=== PATIENT | female | born 1965 | race Caucasian/White ===

== ENCOUNTER 2019-01-21 12:35 | Inpatient (IN) | payer BC ==
[2019-01-21] MEDS ORDERED: LORazepam TAB(*) 1 MG PO ONE ×2 (16:11→23:16)
--- NOTE | 2019-01-21 17:16 | ED ---
Psychiatric Complaint - HPI Summary HPI Summary: This patient is a 53-year-old female presenting to the ED with symptoms of anxiety which has not been controlled with her medications. Patient states she had an 8 day stay at [facility] and was given haldol. Patient states she subsequently developed palpitations and was taken off Haldol and instead given Ativan. When she followed up as an outpatient, they took her off Ativan and prescribe her venlafaxine. She states she had no relief with this and again after up her dose twice, she again developed feelings of palpitations with no relief of her anxiety. She went back to her PCP who then again placed her back on her Ativan. She is currently on 0.5 mg 4 times daily as needed for anxiety and she states she is needed all 4 doses daily. She denies any SI/HI. She states she came today to see a counselor and get "admitted." She states she would at least like one night to "clear her thoughts." Her is requesting this as well. - History Of Current Complaint Chief Complaint: EDPsychosocial Time Seen by Provider: 01/21/19 13:45 Hx Obtained From: Patient ?: No Onset/Duration: Sudden Onset Timing: Constant Severity Initially: Moderate Severity Currently: Moderate Character: Anxious Aggravating Factor(s): Nothing Alleviating Factor(s): Nothing Associated Signs And Symptoms: Positive: Negative - Risk Factor(s) Completed Suicide Risk Factors: Negative - Allergies/Home Medications Allergies/Adverse Reactions: Allergies Allergy/AdvReac Type Severity Reaction Status Date / Time Penicillins Allergy Rash Verified 01/21/19 13:07 Home Medications: Home Medications Albuterol HFA INHALER* [Ventolin HFA Inhaler*] 2 puff INH Q4H PRN 01/21/19 [ History Confirmed 01/21/19] Budesonide/Formote 80/4.5(NF) [Symbicort 80/4.5 (NF)] 2 puff INH BID 01/21/19 [ History Confirmed 01/21/19] LORazepam TAB(*) [Ativan 0.5 MG TAB (*)] 0.5 mg PO Q6H PRN 01/21/19 [History Confirmed 01/21/19] Thyroid,Pork [[place] Thyroid] 30 mg PO DAILY 01/21/19 [History Confirmed ] PMH/Surg Hx/FS Hx/Imm Hx Previously Healthy: Yes - Immunization History Hx Pertussis Vaccination: No Immunizations Up to Date: Yes Infectious Disease History: No Infectious Disease History: Denies: Traveled Outside the [place] in Last 30 Days - Social History Occupation: Unemployed Lives: With Family Alcohol Use: Daily Alcohol Amount: 4 beers Hx Substance Use: Yes Substance Use Type: Reports: Marijuana Smoking Status (MU): Never Smoked Tobacco Review of Systems Negative: Fever, Chills, Fatigue, Skin Diaphoresis Negative: Palpitations, Chest Pain Negative: Shortness Of Breath, Cough Genitourinary: Negative Positive: no symptoms reported, see HPI Negative: Arthralgia, Myalgia Skin: Negative Negative: Headache, Weakness, Paresthesia, Numbness Positive: Anxious All Other Systems Reviewed And Are Negative: Yes Physical Exam Triage Information Reviewed: Yes Vital Signs On Initial Exam: Initial Vitals Temp Pulse Resp BP Pulse Ox 100.3 F 86 16 122/81 97 01/21/19 13:01 01/21/19 13:01 01/21/19 13:01 01/21/19 13:01 01/21/19 13:01 Vital Signs Reviewed: Yes Appearance: Positive: Well-Appearing, Well-Nourished Skin: Positive: Warm, Skin Color Reflects Adequate Perfusion Head/Face: Positive: Normal Head/Face Inspection Eyes: Positive: EOMI, GEORGES, Conjunctiva Clear Neck: Positive: Supple, Nontender, No Lymphadenopathy Respiratory/Lung Sounds: Positive: Clear to Auscultation, Breath Sounds Present Cardiovascular: Positive: RRR, Pulses are Symmetrical in both Upper and Lower Extremities Musculoskeletal: Positive: Normal, Strength/ROM Intact Neurological: Positive: Speech Normal Psychiatric: Positive: Anxious AVPU Assessment: Alert Procedures - Sedation Patient Received Moderate/Deep Sedation with Procedure: No Diagnostics - Vital Signs Vital Signs Temp Pulse Resp BP Pulse Ox 01/21/19 16:16 16 01/21/19 15:59 94 115/77 95 01/21/19 13:01 100.3 F 86 16 122/81 97 - Laboratory Lab Statement: Any lab studies that have been ordered have been reviewed, and results considered in the medical decision making process. Course/Dx - Course Course Of Treatment: During his course of treatment, the patient is evaluated for symptoms of anxiety. Patient has anxiety at baseline and is currently taking medication for this. She is here today requesting an admission or at least to stay overnight to "clear her thoughts." She denies any SI or HI. I discussed with the patient I will request a mental health evaluation for her, however it will be up to the mental health electrical intern and psychiatrist if she will be admitted or any mental changes will be made. She is okay with this plan. She is signed out to JERONIMO Jordan pending MHE at 5:30pm. - Differential Dx/Clinical Impression Differential Diagnosis/HQI/PQRI: Positive: Anxiety, Bipolar Disorder Provider Diagnosis: Anxiety Discharge ED - Sign-Out/Discharge Documenting (check all that apply): Sign-Out Patient Signing out patient TO: Ad Lombardo - Discharge Plan Condition: Fair Referrals: Eulalio DECKER,Portia Colby [Primary Care Provider] - - Billing Disposition and Condition Condition: FAIR
[2019-01-21 21:02] LABS: Hematocrit 39 % (35-47); Hemoglobin 13.6 g/dL (12.0-16.0); Mean Corpuscular HGB Conc 35 g/dL (31-36); Mean Corpuscular Hemoglobin 33 pg (27-31); Mean Corpuscular Volume 94 fL (80-97); Mean Platelet Volume 6.2 fL (7.4-10.4); Platelet Count 452 10^3/uL (150-450); Red Blood Count 4.19 10^6 /uL (3.70-4.87); Red Cell Distribution Width 13 % (10-15); White Blood Count 7.2 10^3/uL (3.5-10.8)
[2019-01-21 21:19] LABS: ALT 12 U/L (7-52); AST 15 U/L (13-39); Albumin 4.3 g/dL (3.2-5.2); Albumin/Globulin Ratio 1.9 (1-3); Alkaline Phosphatase 66 U/L (34-104); Anion Gap 7 mmol/L (2-11); BUN/Creatinine Ratio 17.1 (8-20); Blood Urea Nitrogen 14 mg/dL (6-24); CO2 Carbon Dioxide 30 mmol/L (22-32); Calcium 9.8 mg/dL (8.6-10.3); Chloride 104 mmol/L (101-111); EGFR African American 87.6 (>60); EGFR Non-African American 72.4 (>60); Globulin 2.3 g/dL (2-4); Glucose 101 mg/dL (70-100); Potassium 4.1 mmol/L (3.5-5.0); Sodium 141 mmol/L (135-145); Total Protein 6.6 g/dL (6.4-8.9)
[2019-01-21 21:25] LABS: ABS Eosinophils 0.2 10^3/ul (0-0.6); ABS Lymphocytes 3.6 10^3/ul (1.0-4.8); ABS Monocytes 0.6 10^3/ul (0-0.8); ABS Neutrophils 2.7 10^3/ul (1.5-7.7); Eosinophil % 3.1 %; Lymphocyte % 50.7 %; Nucleated Red Blood Cells % 0.1
[2019-01-21 21:31] LABS: Urine Appearance Clear; Urine Bilirubin Negative (Negative); Urine Blood Negative (Negative); Urine Color Straw; Urine Glucose Negative (Negative); Urine Ketones Negative (Negative); Urine Nitrite Negative (Negative); Urine Protein Negative (Negative); Urine Specific Gravity 1.003 (1.010-1.030); Urine Urobilinogen Negative (Negative)
[2019-01-21 21:33] LABS: Acetaminophen < 15 mcg/mL; Alcohol < 10 mg/dL (<10); Salicylate < 2.50 mg/dL (<30)
[2019-01-21 21:47] LABS: TSH (Thyroid Stimulating Horm) 1.21 mcIU/mL (0.34-5.60)
[2019-01-21 21:52] LABS: Urine Benzodiazepine Screen None Detected (None Detect); Urine Opiates Screen None Detected (None Detect)
[2019-01-22] MEDS ORDERED: OLANzapine TAB* 5 MG ONE (02:48)
--- NOTE | 2019-01-22 02:49 | PN ---
Progress Note - Progress Note Date of Service: 01/22/19 Note: Patient signed out to me by Marva DECKER pending mental health evaluation. Vital signs within normal limits. Labs unremarkable. Per Dr. Jimenez patient admitted to [facility] [place] with diagnosis of unspecified psychosis.
[2019-01-22] MEDS ORDERED: Nicotine* 2MG (FRUIT FLAVOR) GUM PO PRN (04:52)
[2019-01-22] MEDS ORDERED: Al Hydrox/Mg Hydrox/Simet LIQ* 30 ML UDC PO PRN (04:52)
[2019-01-22] MEDS ORDERED: Acetaminophen TAB* 325 MG PO PRN (04:52)
[2019-01-22] MEDS ORDERED: LORazepam TAB(*) 1 MG PO PRN (04:54)
[2019-01-22] MEDS ORDERED: LORazepam PO 0-6 for WAM protocol PO SCH (05:00)
[2019-01-22] MEDS ORDERED: Nicotine PATCH 21 MG/24 HR* PATCH TRANSDERM SCH (09:00)
[2019-01-22] MEDS: Vitamin THERAPEUTIC TAB PO SCH (09:04)
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
[2019-01-22] MEDS: Thiamine TAB* 100 MG TAB PO SCH (11:16)
[2019-01-22] MEDS: Escitalopram * 10 MG TAB PO SCH (11:16)
[2019-01-22] MEDS ORDERED: Albuterol HFA INHALER* 8 gm MDI INH PRN (11:43)
[2019-01-22] MEDS ORDERED: ARIPiprazole TAB* 5 MG PO SCH (12:00)
[2019-01-22] MEDS: Thyroid TAB* 30 MG PO SCH ×2 (12:25→13:48)
[2019-01-22] MEDS: Mometasone/Formoter 100/5 MDI INH SCH ×2 (12:26→20:37)
[2019-01-22] MEDS ORDERED: Gadoteridol* (CONTRAST) 279.3 MG/ML 10 ML IV ONE (14:45)
[2019-01-22] MEDS: hydrOXYzine HCL TAB* 25 MG PO PRN (17:47)
[2019-01-22] MEDS: QUEtiapine TAB* 300 MG PO SCH (20:37)
[2019-01-22] MEDS ORDERED: Nicotine Patch Removal NOTE PATCH OFF SCH (21:00)
[2019-01-22] MEDS ORDERED: OLANzapine TAB* 5 MG PO SCH (21:00)
[2019-01-22] MEDS ORDERED: QUEtiapine TAB* 100 MG PO SCH ×2 (21:00)
[2019-01-23 07:04] LABS: HDL Cholesterol 67.3 mg/dL
[2019-01-23] MEDS: Thyroid TAB* 30 MG PO SCH (07:19)
[2019-01-23] MEDS: Mometasone/Formoter 100/5 MDI INH SCH ×2 (09:09→20:23)
[2019-01-23] MEDS: Thiamine TAB* 100 MG TAB PO SCH (09:09)
[2019-01-23] MEDS: Escitalopram * 10 MG TAB PO SCH (09:10)
[2019-01-23] MEDS: Vitamin THERAPEUTIC TAB PO SCH (09:11)
--- NOTE | 2019-01-23 09:52 | PN ---
Subjective - Subjective Date of Service: 01/23/19 Service Type: 54914 Hosp care 35 min high complexity Subjective: Nursing Report: Patient was visible on unit, no behavioral incidents. Slept overnight 6 hours. Attending group activities. CC: "People are blaming me for things Patient was seen and evaluated today in the common room. The patient reported that she feels that people are blaming her for getting help. She reported having better sleep overnight. The patient reports attending and participating in day groups. Per nursing no behavioral issues or overnight events reported. Patient reported that she is tolerating medications without side effects. Patient expressed that she would like to move on with the things in the past such as taking apart things in her home and thinking that helicopters are stealing her information. Objective - General Observations Appearance: Disheveled Appears Stated Age: Yes Stature: WNL Posture: Slumped Eye Contact: Intermittent Behavior/Activity: Slowed - Interaction Observations Attitude Towards Examiner: Cooperative Stated Mood: Dysphoric Affect: Restricted Speech Pattern/Tone: Perseverating Thought Process: Loose Associations Perception: Depersonalization Thought Content: Self-Deprecatory Thought Process: Lethality: Paranoid Ideation Hallucination Type: Denies Delusion Type: Control - Cognitive Function Orientation: A&O x 4 Level of Consciousness: Awake - Medication Compliance Cooperative with Inpatient Medication Regimen: Yes - Group Participation Participates in Group Activities: Yes Assessment - Assessment Merits Inpatient Hospitalization: For Immediate Safety Clinical Impression: 53 year old female with history of depression came to the hospital with her with multiple paranoid delusions and was admitted to the BSU at [facility]. Plan - Plan Treatment Plan: Name: KELSIE IRWIN Birthdate: 1965 [id number] Plan #Q30 minute observation with staff pass # The patient requires psychiatric inpatient admission at this time to assure safety, receive treatment and work toward stabilization. # Hospitalist contacted and reviewed EKG results and determined them to be normal # Obtained collateral information from Víctor # [phone]. # contacted and he removed patients access to firearms # Collaboration with Freelance Designer Maryuri Rodgers # Continue thiamine 200mg daily # Arrange family meeting with # Continue lexapro 10mg daily for depression # Continue seroquel 300mg qhs for psychosis # Late onset psychiatric manifestations will order RPR, Lyme WB, ISAC. # MRI brain results mild chronic small vessel disease is likely, atrophy of left parotid gland and no acute intracranial abnormality # Vitamin B12 level normal, RPR negative, Lyme negative # ISAC pending # MOCA score 27 deficiency in memory delayed recall #Goals before discharge include: Reduce paranoid delusions Tentative Discharge: Pending psychiatric stabilization Sodium 141 mmol/L (135-145) 01/21/19 20:55 Potassium 4.1 mmol/L (3.5-5.0) 01/21/19 20:55 BUN 14 mg/dL (6-24) 01/21/19 20:55 Creatinine 0.82 mg/dL (0.51-0.95) 01/21/19 20:55 Calcium 9.8 mg/dL (8.6-10.3) 01/21/19 20:55 AST 15 U/L (13-39) 01/21/19 20:55 ALT 12 U/L (7-52) 01/21/19 20:55 Triglycerides 91 mg/dL 01/23/19 06:36 Cholesterol 182 mg/dL 01/23/19 06:36 LDL Cholesterol 97 mg/dL 01/23/19 06:36 Continued Medication Management: Continue Outpt Medication Medications: Current Medications Acetaminophen (Tylenol Tab*) 650 mg PO Q4H PRN PRN Reason: PAIN or TEMP > 101 F Al Hydrox/Mg Hydrox/Simethicone (Maalox Plus*) 30 ml PO Q4H PRN PRN Reason: INDIGESTION Albuterol (Ventolin Hfa Inhaler*) 2 puff INH Q4H PRN PRN Reason: SOB/WHEEZING Escitalopram Oxalate (Lexapro *) 10 mg PO DAILY [facility] Last Admin: 01/23/19 09:10 Dose: 10 mg Hydroxyzine HCl (Atarax Tab*) 25 mg PO Q6H PRN PRN Reason: ANXIETY Last Admin: 01/22/19 17:47 Dose: 25 mg Mometasone Furoate/Formoterol Fumar (Dulera 100/5 Mdi*) 2 puff INH BID [facility] Last Admin: 01/23/19 09:09 Dose: 2 puff Multivitamins (Theragran Tab*) 1 tab PO DAILY [facility] Last Admin: 01/23/19 09:11 Dose: 1 tab Quetiapine Fumarate (Seroquel Tab*) 300 mg PO BEDTIME [facility] Last Admin: 01/22/19 20:37 Dose: 300 mg Thiamine HCl (Vitamin B-1 Tab*) 200 mg PO DAILY [facility] Last Admin: 01/23/19 09:09 Dose: 200 mg Thyroid (Thyroid Tab*) 30 mg PO DAILY@0730 [facility] Last Admin: 01/23/19 07:19 Dose: 30 mg - Discharge Plan Discharge Plan: Inpatient Hospitalization
[2019-01-23] MEDS: hydrOXYzine HCL TAB* 25 MG PO PRN ×2 (12:34→17:25)
[2019-01-23] MEDS ORDERED: QUEtiapine XR TAB* 200 MG PO SCH (21:00)
[2019-01-23] MEDS: QUEtiapine TAB* 300 MG PO SCH (21:07)
[2019-01-24] MEDS: hydrOXYzine HCL TAB* 25 MG PO PRN ×3 (04:51→16:55)
[2019-01-24] MEDS: Thiamine TAB* 100 MG TAB PO SCH (08:55)
[2019-01-24] MEDS: Vitamin THERAPEUTIC TAB PO SCH (08:55)
[2019-01-24] MEDS: Escitalopram * 20 MG TABLET PO SCH (08:55)
[2019-01-24] MEDS: Mometasone/Formoter 100/5 MDI INH SCH ×2 (08:56→20:07)
--- NOTE | 2019-01-24 10:22 | PN ---
Subjective - Subjective Date of Service: 01/24/19 Service Type: 08211 Hosp care 35 min high complexity Subjective: Nursing Report: Patient was visible on unit, no behavioral incidents. Attending group activities. CC: "I dont know why people are bringing up things from the past Patient was seen and evaluated today in the common room. The patient reported that she did not get good sleep overnight and that she spoke with her today. She wishes that people would move on from the things that happened to her in the past. She reported having less racing thoughts and feels more "stable ". She reported adequate appetite. Patient reported that she is tolerating medications without side effects. Objective - General Observations Appearance: Well Groomed Appears Stated Age: Yes Stature: WNL Posture: WNL Eye Contact: Average Behavior/Activity: WNL - Interaction Observations Attitude Towards Examiner: Cooperative Stated Mood: Dysphoric Affect: Restricted Speech Pattern/Tone: Normal Volume Thought Process: Loose Associations Perception: WNL Thought Content: Paranoid Thought Process: Lethality: Paranoid Ideation Hallucination Type: Denies Delusion Type: Persecution - Cognitive Function Orientation: A&O x 4 Level of Consciousness: Awake Cognition: WNL - Medication Compliance Cooperative with Inpatient Medication Regimen: Yes - Group Participation Participates in Group Activities: Yes Assessment - Assessment Merits Inpatient Hospitalization: For Immediate Safety Clinical Impression: 53 year old female with history of depression came to the hospital with her with multiple paranoid delusions and was admitted to the BSU at [facility]. Plan - Plan Treatment Plan: Name: KELSIE IRWIN Birthdate: 1965 [id number] Plan #Q30 minute observation with staff pass Patient responding well to treatment with good response. # The patient requires psychiatric inpatient admission at this time to assure safety, receive treatment and work toward stabilization. # Hospitalist contacted and reviewed EKG results and determined them to be normal # Obtained collateral information from V[facility]ctor # [phone]. # contacted and he removed patients access to firearms # Collaboration with [employer] Analyst Maryuri Rodgers # Discontinue thiamine # Family meeting Sunday at 11am # Increase lexapro 20mg daily for depression # Increase seroquel 600mg qhs for psychosis advised to slowly stand up from rising position # MRI brain results mild chronic small vessel disease is likely, atrophy of left parotid gland and no acute intracranial abnormality # Vitamin B12 level normal, RPR negative, Lyme negative # ISAC pending # MOCA score 27 deficiency in memory delayed recall #Goals before discharge include: Reduce/ eliminate depression anxiety and paranoia Tentative Discharge: Sunday01/21/19 01/21/19 01/21/19 20:55 20:55 20:55 WBC 7.2 RBC 4.19 Hgb 13.6 Hct 39 MCV 94 MCH 33 H MCHC 35 RDW 13 Plt Count 452 H MPV 6.2 L Neut % (Auto) 37.0 Lymph % (Auto) 50.7 Island % (Auto) 8.9 Eos % (Auto) 3.1 Baso % (Auto) 0.3 Absolute Neuts (auto) 2.7 Absolute Lymphs (auto) 3.6 Absolute Monos (auto) 0.6 Absolute Eos (auto) 0.2 Absolute Basos (auto) 0.0 Absolute Nucleated RBC 0.0 Nucleated RBC % 0.1 Sodium 141 Potassium 4.1 Chloride 104 Carbon Dioxide 30 Anion Gap 7 BUN 14 Creatinine 0.82 Est GFR ( Amer) 87.6 Est GFR (Non-Af Amer) 72.4 BUN/Creatinine Ratio 17.1 Glucose 101 H Hemoglobin A1c Calcium 9.8 Total Bilirubin 0.30 AST 15 ALT 12 Alkaline Phosphatase 66 Total Protein 6.6 Albumin 4.3 Globulin 2.3 Albumin/Globulin Ratio 1.9 Triglycerides Cholesterol LDL Cholesterol HDL Cholesterol Vitamin B12 822 TSH 1.21 Urine Color Urine Appearance Urine pH Ur Specific [place] Urine Protein Urine Ketones Urine Blood Urine Nitrate Urine Bilirubin Urine Urobilinogen Ur Leukocyte Esterase Urine Glucose Salicylates < 2.50 Urine Opiates Screen Acetaminophen < 15 Ur Barbiturates Screen Ur Phencyclidine Scrn Ur Amphetamines Screen U Benzodiazepines Scrn Urine Cocaine Screen U Cannabinoids Screen Serum Alcohol < 10 Syphilis IgG Antibody Negative Lyme Total Antibody Negative 01/21/19 01/21/19 01/23/19 21:22 21:22 06:36 WBC RBC Hgb Hct MCV MCH MCHC RDW Plt Count MPV Neut % (Auto) Lymph % (Auto) [place] % (Auto) Eos % (Auto) Baso % (Auto) Absolute Neuts (auto) Absolute Lymphs (auto) Absolute Monos (auto) Absolute Eos (auto) Absolute Basos (auto) Absolute Nucleated RBC Nucleated RBC % Sodium Potassium Chloride Carbon Dioxide Anion Gap BUN Creatinine Est GFR ( Amer) Est GFR (Non-Af Amer) BUN/Creatinine Ratio Glucose Hemoglobin A1c Calcium Total Bilirubin AST ALT Alkaline Phosphatase Total Protein Albumin Globulin Albumin/Globulin Ratio Triglycerides 91 Cholesterol 182 LDL Cholesterol 97 HDL Cholesterol 67.3 Vitamin B12 TSH Urine Color Straw Urine Appearance Clear Urine pH 6.0 Ur Specific [place] 1.003 L Urine Protein Negative Urine Ketones Negative Urine Blood Negative Urine Nitrate Negative Urine Bilirubin Negative Urine Urobilinogen Negative Ur Leukocyte Esterase Negative Urine Glucose Negative Salicylates Urine Opiates Screen None detected Acetaminophen Ur Barbiturates Screen None detected Ur Phencyclidine Scrn None detected Ur Amphetamines Screen None detected U Benzodiazepines Scrn None detected Urine Cocaine Screen None detected U Cannabinoids Screen Presumptive positive A Serum Alcohol Syphilis IgG Antibody Lyme Total Antibody 01/23/19 06:36 WBC RBC Hgb Hct MCV MCH MCHC RDW Plt Count MPV Neut % (Auto) Lymph % (Auto) Island % (Auto) Eos % (Auto) Baso % (Auto) Absolute Neuts (auto) Absolute Lymphs (auto) Absolute Monos (auto) Absolute Eos (auto) Absolute Basos (auto) Absolute Nucleated RBC Nucleated RBC % Sodium Potassium Chloride Carbon Dioxide Anion Gap BUN Creatinine Est GFR ( Amer) Est GFR (Non-Af Amer) BUN/Creatinine Ratio Glucose Hemoglobin A1c 5.2 Calcium Total Bilirubin AST ALT Alkaline Phosphatase Total Protein Albumin Globulin Albumin/Globulin Ratio Triglycerides Cholesterol LDL Cholesterol HDL Cholesterol Vitamin B12 TSH Urine Color Urine Appearance Urine pH Ur Specific [place] Urine Protein Urine Ketones Urine Blood Urine Nitrate Urine Bilirubin Urine Urobilinogen Ur Leukocyte Esterase Urine Glucose Salicylates Urine Opiates Screen Acetaminophen Ur Barbiturates Screen Ur Phencyclidine Scrn Ur Amphetamines Screen U Benzodiazepines Scrn Urine Cocaine Screen U Cannabinoids Screen Serum Alcohol Syphilis IgG Antibody Lyme Total Antibody Continued Medication Management: Continue Outpt Medication Medications: Current Medications Acetaminophen (Tylenol Tab*) 650 mg PO Q4H PRN PRN Reason: PAIN or TEMP > 101 F Al Hydrox/Mg Hydrox/Simethicone (Maalox Plus*) 30 ml PO Q4H PRN PRN Reason: INDIGESTION Albuterol (Ventolin Hfa Inhaler*) 2 puff INH Q4H PRN PRN Reason: SOB/WHEEZING Escitalopram Oxalate (Lexapro *) 20 mg PO DAILY [facility] Last Admin: 01/24/19 08:55 Dose: 20 mg Hydroxyzine HCl (Atarax Tab*) 25 mg PO Q6H PRN PRN Reason: ANXIETY Last Admin: 01/24/19 04:51 Dose: 25 mg Mometasone Furoate/Formoterol Fumar (Dulera 100/5 Mdi*) 2 puff INH BID [facility] Last Admin: 01/24/19 08:56 Dose: 2 puff Multivitamins (Theragran Tab*) 1 tab PO DAILY [facility] Last Admin: 01/24/19 08:55 Dose: 1 tab Quetiapine Fumarate (Seroquel Xr Tab*) 400 mg PO BEDTIME [facility] Last Admin: 01/23/19 21:07 Dose: Not Given Thiamine HCl (Vitamin B-1 Tab*) 200 mg PO DAILY [facility] Last Admin: 01/24/19 08:55 Dose: 200 mg Thyroid (Thyroid Tab*) 30 mg PO DAILY@0730 [facility] Last Admin: 01/23/19 07:19 Dose: 30 mg - Discharge Plan Discharge Plan: Inpatient Hospitalization
[2019-01-24] MEDS: Thyroid TAB* 30 MG PO SCH (11:00)
[2019-01-24] MEDS: QUEtiapine XR TAB* 200 MG PO SCH (20:06)
[2019-01-25] MEDS: Thyroid TAB* 30 MG PO SCH (06:50)
[2019-01-25] MEDS: Mometasone/Formoter 100/5 MDI INH SCH ×2 (07:49→19:51)
[2019-01-25] MEDS: Vitamin THERAPEUTIC TAB PO SCH (07:50)
[2019-01-25] MEDS: Escitalopram * 20 MG TABLET PO SCH (07:51)
[2019-01-25] MEDS: hydrOXYzine HCL TAB* 25 MG PO PRN ×2 (12:43→19:53)
[2019-01-25] MEDS: QUEtiapine XR TAB* 200 MG PO SCH (19:52)
[2019-01-26] MEDS: hydrOXYzine HCL TAB* 25 MG PO PRN ×3 (05:15→18:19)
[2019-01-26] MEDS: Escitalopram * 20 MG TABLET PO SCH (07:37)
[2019-01-26] MEDS: Vitamin THERAPEUTIC TAB PO SCH (07:37)
[2019-01-26] MEDS: Mometasone/Formoter 100/5 MDI INH SCH ×2 (07:38→20:23)
[2019-01-26] MEDS: Thyroid TAB* 30 MG PO SCH (10:51)
--- NOTE | 2019-01-26 18:20 | PN ---
Subjective - Subjective Date of Service: 01/26/19 Subjective: Kelsie presents as guarded, paranoid, pressured in speech but endorses improved mood and sleep. She denies SI/HI or A/VH or side effects from prescribed meds. Objective - General Observations Appearance: Unkempt Appears Stated Age: Yes Stature: Thin Posture: WNL Eye Contact: Average Behavior/Activity: WNL - Interaction Observations Attitude Towards Examiner: Defensive Stated Mood: Dysphoric Affect: Restricted Speech Pattern/Tone: Pressured Thought Process: Coherent, Goal Directed Perception: WNL Thought Content: Paranoid Hallucination Type: None Delusion Type: None - Cognitive Function Orientation: A&O x 4 Level of Consciousness: Alert Cognition: WNL Insight: Difficulty Acknowledging Presence of Psyciatric Problems Judgment Within Normal Limits: Yes - Medication Compliance Cooperative with Inpatient Medication Regimen: Yes - Group Participation Participates in Group Activities: Yes Assessment - Assessment Merits Inpatient Hospitalization: Consolidate Improvements, For Discharge Planning Clinical Impression: 53 year old female with history of depression came to the hospital with her with multiple paranoid delusions and was admitted to the BSU at [facility]. Stabilizing in this structured setting. Plan - Plan Treatment Plan: Name: KELSIE IRWIN Birthdate: 1965 [id number] Plan #Q30 minute observation with staff pass Patient responding well to treatment with good response. # The patient requires psychiatric inpatient admission at this time to assure safety, receive treatment and work toward stabilization. # Hospitalist contacted and reviewed EKG results and determined them to be normal # Obtained collateral information from V[facility]ctor # [phone]. # contacted and he removed patients access to firearms # Collaboration with Pilates Instructor Maryuri Rodgers # Discontinue thiamine # Family meeting Sunday at 11am # Increase lexapro 20mg daily for depression # Increase seroquel 600mg qhs for psychosis advised to slowly stand up from rising position # MRI brain results mild chronic small vessel disease is likely, atrophy of left parotid gland and no acute intracranial abnormality # Vitamin B12 level normal, RPR negative, Lyme negative # ISAC pending # MOCA score 27 deficiency in memory delayed recall #Goals before discharge include: Reduce/ eliminate depression anxiety and paranoia Tentative Discharge: Sunday01/21/19 01/21/19 01/21/19 20:55 20:55 20:55 WBC 7.2 RBC 4.19 Hgb 13.6 Hct 39 MCV 94 MCH 33 H MCHC 35 RDW 13 Plt Count 452 H MPV 6.2 L Neut % (Auto) 37.0 Lymph % (Auto) 50.7 [place] % (Auto) 8.9 Eos % (Auto) 3.1 Baso % (Auto) 0.3 Absolute Neuts (auto) 2.7 Absolute Lymphs (auto) 3.6 Absolute Monos (auto) 0.6 Absolute Eos (auto) 0.2 Absolute Basos (auto) 0.0 Absolute Nucleated RBC 0.0 Nucleated RBC % 0.1 Sodium 141 Potassium 4.1 Chloride 104 Carbon Dioxide 30 Anion Gap 7 BUN 14 Creatinine 0.82 Est GFR ( Amer) 87.6 Est GFR (Non-Af Amer) 72.4 BUN/Creatinine Ratio 17.1 Glucose 101 H Hemoglobin A1c Calcium 9.8 Total Bilirubin 0.30 AST 15 ALT 12 Alkaline Phosphatase 66 Total Protein 6.6 Albumin 4.3 Globulin 2.3 Albumin/Globulin Ratio 1.9 Triglycerides Cholesterol LDL Cholesterol HDL Cholesterol Vitamin B12 822 TSH 1.21 Urine Color Urine Appearance Urine pH Ur Specific [place] Urine Protein Urine Ketones Urine Blood Urine Nitrate Urine Bilirubin Urine Urobilinogen Ur Leukocyte Esterase Urine Glucose Salicylates < 2.50 Urine Opiates Screen Acetaminophen < 15 Ur Barbiturates Screen Ur Phencyclidine Scrn Ur Amphetamines Screen U Benzodiazepines Scrn Urine Cocaine Screen U Cannabinoids Screen Serum Alcohol < 10 Syphilis IgG Antibody Negative [place]yme Total Antibody Negative 01/21/19 01/21/19 01/23/19 21:22 21:22 06:36 WBC RBC Hgb Hct MCV MCH MCHC RDW Plt Count MPV Neut % (Auto) Lymph % (Auto) [place] % (Auto) Eos % (Auto) Baso % (Auto) Absolute Neuts (auto) Absolute Lymphs (auto) Absolute Monos (auto) Absolute Eos (auto) Absolute Basos (auto) Absolute Nucleated RBC Nucleated RBC % Sodium Potassium Chloride Carbon Dioxide Anion Gap BUN Creatinine Est GFR ( Amer) Est GFR (Non-Af Amer) BUN/Creatinine Ratio Glucose Hemoglobin A1c Calcium Total Bilirubin AST ALT Alkaline Phosphatase Total Protein Albumin Globulin Albumin/Globulin Ratio Triglycerides 91 Cholesterol 182 LDL Cholesterol 97 HDL Cholesterol 67.3 Vitamin B12 TSH Urine Color Straw Urine Appearance Clear Urine pH 6.0 Ur Specific [place] 1.003 L Urine Protein Negative Urine Ketones Negative Urine Blood Negative Urine Nitrate Negative Urine Bilirubin Negative Urine Urobilinogen Negative Ur Leukocyte Esterase Negative Urine Glucose Negative Salicylates Urine Opiates Screen None detected Acetaminophen Ur Barbiturates Screen None detected Ur Phencyclidine Scrn None detected Ur Amphetamines Screen None detected U Benzodiazepines Scrn None detected Urine Cocaine Screen None detected U Cannabinoids Screen Presumptive positive A Serum Alcohol Syphilis IgG Antibody [place] Total Antibody 01/23/19 06:36 WBC RBC Hgb Hct MCV MCH MCHC RDW Plt Count MPV Neut % (Auto) Lymph % (Auto) [place] % (Auto) Eos % (Auto) Baso % (Auto) Absolute Neuts (auto) Absolute Lymphs (auto) Absolute Monos (auto) Absolute Eos (auto) Absolute Basos (auto) Absolute Nucleated RBC Nucleated RBC % Sodium Potassium Chloride Carbon Dioxide Anion Gap BUN Creatinine Est GFR ( Amer) Est GFR (Non-Af Amer) BUN/Creatinine Ratio Glucose Hemoglobin A1c 5.2 Calcium Total Bilirubin AST ALT Alkaline Phosphatase Total Protein Albumin Globulin Albumin/Globulin Ratio Triglycerides Cholesterol LDL Cholesterol HDL Cholesterol Vitamin B12 TSH Urine Color Urine Appearance Urine pH Ur Specific [place] Urine Protein Urine Ketones Urine Blood Urine Nitrate Urine Bilirubin Urine Urobilinogen Ur Leukocyte Esterase Urine Glucose Salicylates Urine Opiates Screen Acetaminophen Ur Barbiturates Screen Ur Phencyclidine Scrn Ur Amphetamines Screen U Benzodiazepines Scrn Urine Cocaine Screen U Cannabinoids Screen Serum Alcohol Syphilis IgG Antibody [place] Total Antibody Medications: Current Medications Acetaminophen (Tylenol Tab*) 650 mg PO Q4H PRN PRN Reason: PAIN or TEMP > 101 F Al Hydrox/Mg Hydrox/Simethicone (Maalox Plus*) 30 ml PO Q4H PRN PRN Reason: INDIGESTION Albuterol (Ventolin Hfa Inhaler*) 2 puff INH Q4H PRN PRN Reason: SOB/WHEEZING Escitalopram Oxalate (Lexapro *) 20 mg PO DAILY [facility] Last Admin: 01/26/19 07:37 Dose: 20 mg Hydroxyzine HCl (Atarax Tab*) 25 mg PO Q6H PRN PRN Reason: ANXIETY Last Admin: 01/26/19 11:53 Dose: 25 mg Mometasone Furoate/Formoterol Fumar (Dulera 100/5 Mdi*) 2 puff INH BID [facility] Last Admin: 01/26/19 07:38 Dose: 2 puff Multivitamins (Theragran Tab*) 1 tab PO DAILY [facility] Last Admin: 01/26/19 07:37 Dose: 1 tab Quetiapine Fumarate (Seroquel Xr Tab*) 600 mg PO BEDTIME [facility] Last Admin: 01/25/19 19:52 Dose: 600 mg Thyroid (Thyroid Tab*) 30 mg PO DAILY@0730 [facility] Last Admin: 01/26/19 10:51 Dose: 30 mg - Discharge Plan Discharge Plan: Outpatient Follow Up Outpatient Program: [facility]
[2019-01-26] MEDS: QUEtiapine XR TAB* 200 MG PO SCH (20:23)
[2019-01-27] MEDS: hydrOXYzine HCL TAB* 25 MG PO PRN ×2 (00:03→06:16)
[2019-01-27] MEDS: Thyroid TAB* 30 MG PO SCH (07:00)
[2019-01-27 08:21] VITALS: BP 107/61
[2019-01-27] MEDS: Mometasone/Formoter 100/5 MDI INH SCH (08:56)
[2019-01-27] MEDS: Vitamin THERAPEUTIC TAB PO SCH (08:56)
[2019-01-27] MEDS: Escitalopram * 20 MG TABLET PO SCH (08:56)
--- NOTE | 2019-01-27 11:24 | DS ---
Subjective - Subjective Service Types: [address] [facility] Day Mgmt complex over 30 min Discharge Date: 01/27/19 Subjective: CC: " I am better" Patient looks forward to going home and seeing her sister. The patient was seen and evaluated before discharge today. The patient reported having adequate appetite and sleep. The patient reports attending and participating in day groups. Per nursing no behavioral issues or overnight events reported. Patient reported tolerating medications without side effects. Justification for admission: Immediate Safety. CC " I want to get better" The patient was brought to [facility] by her after she has been displaying unusual behavior such as calling the police stating people were in her house making her dogs sick, unplugging all devices in her home thinking they are bugged and collecting information about her. Dismantling objects and hub caps because she thinks that they are transmitting information. Patient believes that water is taped and that her home is a bugged and has become a central data base for information and that helicopters fly over and capture information that devices are collecting. She was recently hospitalized at [facility] and reported that she did not have any improvement. 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 According to her the patient became depressed after her sister in 2014 but since May 2018 she started to have increased paranoia. She took apart remote controls and thinking people were putting mirror coating on things to transmit information. She reported having many losses in her life that she identified as stressors such losing her aunt and uncle an her sister who from heart attack in 2014. Patient reported that in September a wood beam hit her in the head she denied losing consciousness or being evaluated by a medical professional. She asked about the possibility of lyme disease because she is frequently outside and has dogs. She has access to firearms at home and expressed that she has no plans to end her life or use them against any one else. She reported poor sleep 5 hrs per night on average and loss of appetite. The patient denied auditory and/ or visual hallucinations. MDD She reported feeling depressed and frequently having crying spells multiple times per day , and describes feelings of hopelessness. She reported 8-12 unintentional weight loss. She reported poor sleep and decreased concentration. Denied recurrent thoughts of . Denied thoughts that she would be better off . Anxiety Reported worrying frequently most often about her sister who moved to [place] and has lung cancer. She denied having panic attacks. Bipolar Denied symptoms of anish such as having many ideas at once. Denied increased talkativeness where no one can interrupt. Denied feeling irritable most of the time while having an persistent abundance of energy most of the day without the use of energy drinks, stimulants, or recreational drug use. Denied an increase in intensity in goal directed activities. Denied having the decreased need to sleep for days , having prolonged elevated mood , or feeling on top of the world. Denied impulsive risky sexual encounters. Denied spending money recklessly , going on spending sprees wiping out savings. Denied impulsively traveling out of town or country, having super pappas, and unrealistic wealth or fame. Psychosis Patient recently called the police stating people were in her house making her dogs sick, and that devices in her home are collecting information about her and sending it to helicopters. Phobias: Patient denied having excessive fear of a particular thing or situation. Eating disorders: Patient denied having excessive eating habits or feelings of guilt after eating. Denied repeated episodes of self induced vomiting after eating. PTSD Denied flashbacks, nightmares and avoidance of a prior traumatic event. PAST PSYCHIATRIC HISTORY: Prior Diagnosis : Depression History of past Psychiatric Hospitalizations: 1 prior psychiatric admission at [facility] for 8 days in September,. History of past suicide/homicide attempts : Denied past suicide attempts or self injurious behaviors ( confirmed by collateral) . No history of violence. Outpatient follow-up: [facility] mental health outpatient services Medications: Past trials of medications include Paxil that she took for 14 days in November,, Ativan, Effexor 75mg , and Haldol ( described developing a skin rash) Guardianship: None. FAMILY HISTORY: - Suicide: Denied family history of suicide. - Mental illness: Niece Dx with Depression - Substance abuse: Denied substance abuse among family members. SUBSTANCE ABUSE HISTORY: - EtOH: Consumes 4 beers daily since 2015. No associated legal issues, blackouts , seizures, DTs or hospitalizations due to alcohol. - Tobacco: Denied - Cannabis: Uses daily one joint since age 11. - Heroin: Denied - Cocaine: Denied - Substance abuse treatment: Denied past substance abuse treatment SOCIAL HISTORY: - Denied a history of childhood physical and or sexual abuse Born in [place], [place], and raised by both parents. 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 - Relationship: and has no children. - Legal history: Denied - service history: Denied PAST MEDICAL HISTORY: Asthma, Hypothyroidism - Allergies: Haldol (Rash), Penicillins, Effexor (muscle twitching however was after abrupt discontinuation.) Physical Exam: Please see ED note Mental Status Exam on Admission APPEARANCE : 53 year old who appears stated age. Patient is not malodourous, and appears to have fair hygiene and grooming. BEHAVIOR: Cooperative , calm EYE CONTACT: Fair PSYCHOMOTOR ACTIVITY: No psychomotor agitation or retardation. MOVEMENTS: No abnormal movements observed. SPEECH : Normal rate, rhythm, volume and tone. MOOD : "Sad " AFFECT : Type is depressed and labile Range is restricted Mood Incongruent THOUGHT PROCESS: Formulated and organized in a logical, linear goal directed manner. THOUGHT CONTENT: Paranoid delusions PERCEPTION: No current auditory or visual hallucinations. SUICIDALITY Denied suicidal ideation, intent or plan. HOMICIDALITY Denied homicidal ideation, intent or plan. Insight/judgment: Poor insight and judgment ORIENTATION: Oriented to self, location, and time. Diagnosis on Admission: Major depressive disorder with features of psychosis. Cannabis use disorder. Diagnosis on Discharge: Major depressive disorder with features of psychosis in partial remission. Cannabis use disorder. Condition at the time of discharge: At the time of discharge patient showed improvement of sleep and appetite. The patient was not a danger to self or others. The patient denied suicidal ideation, intent or plan. The patient denied homicidal targets, ideation, intent or plan. This patient participated in psychosocial rehabilitation and gained some insight into problems. The patient gained insight into mental illness, triggers, and treatment. The patient took medication as prescribed. The patient denied side effects of medication and objective signs of side effects were not evident. Therapy Resources were offered to the patient. Patient was given a supply of prescriptions at the time of discharge. The patient plans to attend follow up care with the follow up arrangements that were discussed and put in place. Patient was asked to keep appointments as scheduled, take medication as prescribed, have routine follow up care with their primary care physician and refrain from any use of alcohol or drugs. Objective - General Observations Appearance: Neat Appears Stated Age: Yes Stature: WNL Posture: WNL Eye Contact: Average Behavior/Activity: WNL - Interaction Observations Attitude Towards Examiner: Cooperative Stated Mood: Euthymic Affect: Full Speech Pattern/Tone: Clear Thought Process: Coherent Perception: WNL Thought Content: WNL Hallucination Type: None Delusion Type: None - Cognitive Function Orientation: A&O x 4 Level of Consciousness: Awake Cognition: WNL - Medication Compliance Cooperative with Inpatient Medication Regimen: Yes - Group Participation Participates in Group Activities: Yes Treatment Course & Assessment Clinical Course & Impression: Hospital course part A: 53 year old female with history of depression came to the hospital with her with multiple paranoid delusions and was admitted to the BSU at [facility]. Hospital course part B: Labs ordered included CBC, CMP, UDS, TSH, HBA1c, TSH, Toxicology screen, Urine analysis, and lipid profile. Labs were reviewed and did not require the need for further evaluation. Vital signs were monitored during the course of admission. Lyme WB, RPR, ISAC Vitamin B12, did not show abnormalities. MRI brain results mild chronic small vessel disease is likely, atrophy of left parotid gland and no acute intracranial abnormality. MOCA score was 27 with normal results and deficiency in memory delayed recall EKG ordered for risk of QT prolongation of antipsychotic medication. EKG was reviewed by hospitalist. The patient was admitted to the adult behavioral unit and placed on 15 minute check for safety. At a later time the patient was on Q30 minute observation and staff pass privileges. With those limits being extended, patient was safe on all checks and there were no occurrence of behavioral incidents. The patient did well on the unit and went to groups. Interacted with peers had adequate sleep and regular appetite. Tolerated medication changes without side effects. Group therapy and services were offered. The risks, benefits, and alternative treatment options were discussed as well as of the risks of refusing treatment. Treatment associated risks discussed. After this discussion the patient made an acknowledgement of this understanding. Follow up care appointments were put in place. Monitoring for metabolic changes was reviewed and it was emphasized to the patient to be continued to be monitored upon discharge. The patient was informed not to abruptly stop or start new medications before consulting with a medical professional. Improvements in patient from the time of admission include: Improved affect, sleep and decrease in anxiety. The patient expressed readiness for discharge home. The patient presents with a broader range of affect, and the absence of depressed mood, delusions, perceptual disturbance. The patient denied suicidal and or homicidal ideation intent or plan. Overall, the patient responded well to inpatient treatment as evidenced by their report of strengthening of coping mechanisms, reduced distress, and more positive outlook on circumstances. Of note there was an improvement of recognizing how emotional state can effect mood and behavior. Safety precautions were put in place which included involving the patient and their family to closely monitor for changes in mental state. In addition, implementing follow up care, screening for the need to remove/securing firearms , weapons and stockpile of medications. Patient/ family instructed to immediately call 911 should any safety concerns arise. AIMS was performed and insignificant for involuntary movement disorders. The patient was advised of the 24 hour / 7 days a week availability of the emergency room and to call 911 in the event of an emergency such as being suicidal and/ or homicidal. The patient was informed of the contact information for [facility], Suicide Prevention and Crisis Services, National Suicide Prevention Lifeline, [facility], Alcoholics Anonymous, and [facility]. Medications started included lexapro 20mg daily for depression and seroquel 600mg qhs for psychosis, and hydroxyzine 25mg Q6H PRN for anxiety. Patient was informed of and offered substance abuse cessation resources for cannabis and alcohol and declined . Family meeting took place before discharge. The family confirmed that the patient is at their baseline. At this time both the patient and family are eager for discharge and are in agreement with the discharge plan and can safely receive care in the less restrictive outpatient setting. They were advised on how the days following discharge can be a vulnerable period and to look out for warning signs associated with decompensation and progression of mental illness. They were notified of the resources available in the event these situations arise and confirmed that the patient has no access to firearms or stockpiles of medications. Patient was not assaultive or a behavioral problem during the course of admission. The patient showed good hygiene and was able to carry out activities of daily living. Patient will be discharged to live at home with her . [facility] up appointment at [facility] Patient informed of follow up appointment times. See more details for follow up care in the discharge plan. Risk factors were mitigated by establishing the patients baseline with close contacts and arranging a family meeting. Implementing precautionary safety measures by confirming no stockpiles of medications and no access to firearms , providing mental health treatment, offering substance abuse resources and treatment, substance abuse therapy groups, stabilization of depressive and psychotic features, arrangement of outpatient continuation of care, as well as provided a supportive care environment and therapy resources during the course of hospitalization. Safety plan was reviewed with the patient and treatment team and the patient verbalized steps to ensure their safety. Risk factors: , Age, history of mental illness, recent psychosis , history of alcohol use Protective factors: Currently no suicidal ideation, intent or plan. No history of suicide attempts ,lives with Has social/ family support system. No history of service. Currently no feelings of hopelessness, not in an occupation of social isolation, doesnt have multiple medical conditions, no family history of suicide, doesnt have access to firearms. Doesnt have command hallucinations or other psychotic features at this time. No current substance abuse other than cannabis. Not an anniversary of a loss of a loved one. No changes in relationship status, housing. Currently future orientated. Patient engaged in treatment and compliant with medication. Sodium 141 mmol/L (135-145) 01/21/19 20:55 Potassium 4.1 mmol/L (3.5-5.0) 01/21/19 20:55 BUN 14 mg/dL (6-24) 01/21/19 20:55 Creatinine 0.82 mg/dL (0.51-0.95) 01/21/19 20:55 Hemoglobin A1c 5.2 % (4.0-5.6) 01/23/19 06:36 Calcium 9.8 mg/dL (8.6-10.3) 01/21/19 20:55 AST 15 U/L (13-39) 01/21/19 20:55 ALT 12 U/L (7-52) 01/21/19 20:55 Triglycerides 91 mg/dL 01/23/19 06:36 Cholesterol 182 mg/dL 01/23/19 06:36 LDL Cholesterol 97 mg/dL 01/23/19 06:36 Merits Inpatient Hospitalization: No Clear for Discharge: Adequate Clinical Respons Discharge Planning - Discharge Planning Discharge Plan: Outpatient Follow Up [facility] Recommendations for Continuing Care: Medication Management Medications: Current Medications Acetaminophen (Tylenol Tab*) 650 mg PO Q4H PRN PRN Reason: PAIN or TEMP > 101 F Al Hydrox/Mg Hydrox/Simethicone (Maalox Plus*) 30 ml PO Q4H PRN PRN Reason: INDIGESTION Albuterol (Ventolin Hfa Inhaler*) 2 puff INH Q4H PRN PRN Reason: SOB/WHEEZING Escitalopram Oxalate (Lexapro *) 20 mg PO DAILY [facility] Last Admin: 01/27/19 08:56 Dose: 20 mg Hydroxyzine HCl (Atarax Tab*) 25 mg PO Q6H PRN PRN Reason: ANXIETY Last Admin: 01/27/19 06:16 Dose: 25 mg Mometasone Furoate/Formoterol Fumar (Dulera 100/5 Mdi*) 2 puff INH BID [facility] Last Admin: 01/27/19 08:56 Dose: 2 puff Multivitamins (Theragran Tab*) 1 tab PO DAILY [facility] Last Admin: 01/27/19 08:56 Dose: 1 tab Quetiapine Fumarate (Seroquel Xr Tab*) 600 mg PO BEDTIME [facility] Last Admin: 01/26/19 20:23 Dose: 600 mg Thyroid (Thyroid Tab*) 30 mg PO DAILY@0730 [facility] Last Admin: 01/27/19 07:00 Dose: 30 mg Discharge Planning: Prescriptions provided for discharge [x] Yes [] No Follow up care details as per social work arrangements. Patient response to discharge plan: [x] eager for discharge [] agreeable with discharge plan [] ambivalent about discharge [] disagrees with discharge today
== END 2019-01-27 11:50 | disposition home or self-care (01) | DRG 751 ==
LOC: ED 12:35 → BSU 23:55
PROVIDERS: ADMIT Psychiatry & Neurology Psychiatry; ATTEND Psychiatry & Neurology Psychiatry
PROC: HZ2ZZZZ Detoxification Services for Substance Abuse Treatment (ICD-10-PCS; principal; 2019-01-22)
DX: F33.3 Major depressive disorder, recurrent, severe with psychotic symptoms (principal); F12.90 Cannabis use, unspecified, uncomplicated; E03.9 Hypothyroidism, unspecified; J45.909 Unspecified asthma, uncomplicated; F10.10 Alcohol abuse, uncomplicated; Y90.0 Blood alcohol level of less than 20 mg/100 ml; Z81.8 Family history of other mental and behavioral disorders; Z88.0 Allergy status to penicillin; Z88.8 Allergy status to other drugs, medicaments and biological substances; Z79.51 Long term (current) use of inhaled steroids; Z79.899 Other long term (current) drug therapy
CPT/HCPCS: 36415; 70553; 80053; 80061; 80307; 80320; 80329; 81003; 82607; 83036; 84443; 85025; 86038; 86618; 86780; 93005; 99222; 99231; 99233; 99238; 99284; A9270-GY; A9579; G0480